=== PATIENT | female | born 1970 | race African-American/Black ===

== ENCOUNTER 2024-03-07 13:28 | Emergency (ER) | payer OTHER ==
[~2024-03-07] VITALS: Ht 172.7 cm; Wt 110.0 kg
[2024-03-07 13:32] VITALS: O2SAT 98
[2024-03-07 15:25] VITALS: BP 148/90; PULSE 68; RESP 16; TEMP 36.55848; O2SAT 98
== END 2024-03-07 15:33 | disposition home or self-care (01) ==
LOC: ER 13:56
DX: R04.2 Hemoptysis (principal); E78.00 Pure hypercholesterolemia, unspecified; I11.9 Hypertensive heart disease without heart failure; Z88.6 Allergy status to analgesic agent
CPT/HCPCS: 71045; 99283